=== PATIENT | male | born 1935 | race Two or more races ===

== ENCOUNTER 2019-09-30 11:44 | Emergency (ER) | payer MEDICARE, OTHER ==
[2019-09-30 12:07] VITALS: BP 118/69
[2019-09-30] MEDS ORDERED: Albuterol HFA INHALER* 8 gm MDI INH ONE (12:51)
--- NOTE | 2019-09-30 13:27 | UC ---
Respiratory Complaint HPI - HPI Summary HPI Summary: Is about 10 days with cough. In the last 4 days he's had some shortness of breath. He's noted that it is worse when he is walking [place] the [place] on [facility]. It started with nasal congestion and cough and has continued. - History of Current Complaint Chief Complaint: UCGeneralIllness Stated Complaint: RESP COMPLAINT Time Seen by Provider: 09/30/19 12:17 Hx Obtained From: Patient Onset/Duration: Gradual Onset Timing: Constant Severity Initially: Mild Severity Currently: Moderate Pain Intensity: 0 Character: Cough: Nonproductive Aggravating Factors: Exertion Alleviating Factors: Nothing Associated Signs And Symptoms: Positive: Negative - Allergies/Home Medications Allergies/Adverse Reactions: Allergies Allergy/AdvReac Type Severity Reaction Status Date / Time No Known Allergies Allergy Verified 09/30/19 12:01 Home Medications: Home Medications Atenolol TAB* [Tenormin TAB*] 12.5 mg PO DAILY 07/16/13 [History Confirmed 09/30] Multivitamin [Multivitamins] 1 tab PO DAILY 07/16/13 [History Confirmed 09/30/19 ] Omeprazole CAP (NF) [Prilosec CAP*] 20 mg PO DAILY 07/16/13 [History Confirmed 09/30/19] Psyllium JANET* [Metamucil JANET*] 1 pkt PO DAILY 07/16/13 [History Confirmed ] Vitamin D CAP* [Drisdol CAP*] 2,000 unt PO DAILY 07/16/13 [History Confirmed ] Vitamin E CAP* 400 unit PO DAILY 07/16/13 [History Confirmed 09/30/19] Aspirin EC TAB* [Ecotrin EC Low Dose 81 MG*] 81 mg PO DAILY 05/01/14 [History Confirmed 09/30/19] Nitroglycerin TAB 0.4 MG* 0.4 mg PO SEE INSTRUCTIONS 05/01/14 [History Confirmed 09/30/19] Azithromycin TAB* [Zithromax TAB (Z-JANET) 250 mg #6 tabs] 2 tab PO .TODAY, THEN 1 DAILY #1 janet 09/30/19 [Rx] Simvastatin 20 mg PO DAILY 09/30/19 [History Confirmed 09/30/19] PMH/Surg Hx/FS Hx/Imm Hx Endocrine History: Dyslipidemia Cardiovascular History: Cardiac Disease, Hypertension Neurological History: Other - Intracerebral hematoma - Surgical History Surgical History: Yes Surgery Procedure, Year, and Place: 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 HERNIA - Xs 2. ANKLE - FX - REPAIR. CARDIAC CATH - NO STENTS - Social History Alcohol Use: None Substance Use Type: None Smoking Status (MU): Never Smoked Tobacco - Immunization History Most Recent Influenza Vaccination: none Most Recent Tetanus Shot: unknown Most Recent Pneumonia Vaccination: < 10 yrs Review of Systems All Other Systems Reviewed And Are Negative: Yes Constitutional: Positive: Negative Skin: Positive: Negative Eyes: Positive: Negative ENT: Positive: Nasal Discharge Respiratory: Positive: Cough Cardiovascular: Positive: Negative Gastrointestinal: Positive: Negative Physical Exam - Summary Physical Exam Summary: he is nontoxic in appearance with stable vital signs Triage Information Reviewed: Yes Appearance: Well-Appearing, No Pain Distress Vital Signs: Initial Vital Signs Temp 98.1 F 09/30/19 12:03 Pulse 60 09/30/19 12:03 Resp 16 09/30/19 12:03 BP 118/69 09/30/19 12:03 Pulse Ox 98 09/30/19 12:03 Vital Signs Reviewed: Yes ENT Exam: Normal Neck exam: Normal Respiratory Exam: Other - He has decreased breath sounds on the right Respiratory: Positive: Normal breath sounds - On the left, No respiratory distress, No accessory muscle use Cardiovascular Exam: Normal Abdominal Exam: Normal Neurological Exam: Normal Psychological Exam: Normal Diagnostics - Radiology chest x-ray Radiology Interpretation Completed By: Radiologist Summary of Radiographic Findings: Hyperinflation Respiratory Course/Dx - Course Course Of Treatment: This sounds like it started as a viral infection in that he has a bronchitis now with some bronchospasm. He didn't really get much relief from 1 puff of an albuterol inhaler here in the department but I'm going to discharge him with the inhaler to use for the next few days. Additionally I'll give him a Z-Janet. - Differential Dx/Diagnosis Provider Diagnosis: Bronchitis with bronchospasm Discharge ED - Sign-Out/Discharge Documenting (check all that apply): Patient Departure All imaging exams completed and their final reports reviewed: Yes - Discharge Plan Condition: Stable Disposition: HOME Prescriptions: Azithromycin TAB* [Zithromax TAB (Z-JANET) 250 mg #6 tabs] 2 tab PO .TODAY, THEN 1 DAILY #1 janet Patient Education Materials: Acute Bronchitis (ED), Bronchospasm (ED) Referrals: Kane Townsend MD [Primary Care Provider] - - Billing Disposition and Condition Condition: STABLE Disposition: Home
== END 2019-09-30 13:50 | disposition home or self-care (01) ==
LOC: UCEAST 11:44
DX: J40 Bronchitis, not specified as acute or chronic (principal); J98.01 Acute bronchospasm; I10 Essential (primary) hypertension; E78.5 Hyperlipidemia, unspecified; I51.9 Heart disease, unspecified; Z79.899 Other long term (current) drug therapy; Z79.82 Long term (current) use of aspirin
CPT/HCPCS: 71046; 99212; A9270-GY; G0463